=== PATIENT | male | born 1985 | race African-American/Black ===

== ENCOUNTER 2019-08-05 13:29 | Emergency (ER) | payer OTHER, SELFPAY ==
[2019-08-05 13:36] VITALS: BP 155/84; PULSE 91; RESP 16; TEMP 36.5; O2SAT 100
--- NOTE | 2019-08-05 13:54 | ED.GENADULT ---
HPI - General Adult General Chief complaint: Unspecified Stated complaint: needs Tdapt Time Seen by Provider: 08/05/19 13:54 Source: patient and RN notes reviewed Mode of arrival: ambulatory Limitations: no limitations History of Present Illness HPI narrative: 34-year-old -Thai male presents with complaints of needing Tdap updated due to arrival of in August,. Last Tdap was in 2008 to his knowledge. Denies injuries or wounds. No erythema. No tenderness or swelling. Denies drainage. No streaking. No numbness or tingling, or loss of mobility. Denies fever, chills, headaches, weakness, fatigue, myalgia, or facial swelling. Remains active. The patient reports he have not been diagnosed with COVID-19. The patient reports he is not waiting for the results of a COVID-19 lab test. The patient reports he do not have fever or chills. The patient reports he do not have a new or worsening cough or shortness of breath. Denies chest pain. The patient reports he do not have any rhinorrhea, congestion, sore throat, nausea, vomiting, abdominal pain, and diarrhea. Tolerating po intake well. Denies recent traveling. Denies concerns for COVID-19 or exposures been home since [id number] order except for essential household needs and return home. At this time, patient is not suspected of having COVID-19. Some parts of this dictation were generated by voice recognition software and may contain typographical and/or grammatical inaccuracies. Related Data Home Medications Medication Instructions Recorded Confirmed carvedilol 3.125 mg PO DAILY 08/05/19 08/05/19 glimepiride 2 mg PO DAILY 08/05/19 08/05/19 metformin 1,000 mg PO DAILY 08/05/19 08/05/19 simvastatin 20 mg PO DAILY 08/05/19 08/05/19 Allergies Allergy/AdvReac Type Severity Reaction Status Date / Time No Known Allergies Allergy Verified 08/05/19 13:35 Review of Systems Review of Systems: Narrative: CONSTITUTIONAL: Denies fever, chills, sweats. Complains of needing Tdap updated. EYES: Denies visual changes, redness, discharge. ENT: Denies rhinorrhea, congestion, sore throat, otalgia. CARDIOVASCULAR: Denies chest pain, palpitations, edema. RESPIRATORY: Denies dyspnea, wheezing, cough. GASTROINTESTINAL: Denies abdominal pain, nausea, vomiting, diarrhea. GENITOURINARY: Denies dysuria, hematuria, abnormal discharge. SKIN: Denies rash, itching, skin lesions, tenderness, swelling, erythema, and drainage. MUSCULOSKELETAL: Denies acute back pain, joint pain, or myalgia. NEUROLOGIC: Denies numbness or focal weakness. PSYCHIATRIC: Denies anxiety or depression. All other systems reviewed & are unremarkable except as noted in HPI and below. [facility] Past Medical History Medical History (Updated 08/05/19 @ 14:28 by TI Montanez) Diabetes Hypercholesteremia Hypertension Surgical History Surgical History (Updated 08/05/19 @ 14:18 by TI Montanez) No significant past surgical history Family History Family History (Updated 08/05/19 @ 14:19 by TI Montanez) Father , Lung cancer-developed pnuemonia Lung cancer Mother Hypertension Diabetes mellitus Heart disease Social History Social History (Updated 08/05/19 @ 14:20 by TI Montanez) Smoking packs per day: 0.25 Smoking cigarettes per day: 5.0 Years smoked: 22 Smoking pack-years: 5.50 Smoking status: Current every day smoker Alcohol intake: never Substance use: never Living arrangements: with family Gender identity (if verbalized by the patient): Male Comments At time of signature, agree with nurse past medical, surgical, social, and family history. There is no relevant family history pertinent to the presenting complaint. Exam Narrative: Exam Narrative: GENERAL: This is a well-nourished, well-developed patient, in no apparent distress. Talks in full sentences and ambulates with steady gait without dyspnea. HEAD: normocephalic,
[2019-08-05] MEDS: TETANUS,DIPHTHERIA,AC PERTUSSIS ADULT (0.5 ML) BOOSTRIX IM (14:18)
== END 2019-08-05 14:35 | disposition home or self-care (01) ==
PROVIDERS: Emergency Provider Nurse Practitioner Family
DX: Z23 Encounter for immunization (principal); E11.9 Type 2 diabetes mellitus without complications; I10 Essential (primary) hypertension; E78.00 Pure hypercholesterolemia, unspecified; F17.210 Nicotine dependence, cigarettes, uncomplicated; Z79.84 Long term (current) use of oral hypoglycemic drugs
CPT/HCPCS: 90471; 90715; 99212; G0463

== ENCOUNTER 2019-10-12 15:16 | Emergency (ER) | payer OTHER, SELFPAY ==
--- NOTE | ~2019-10-12 | XR_ITS ---
EXAMINATION: XR forearm LT 2V DATE: 10/12/2019 15:43 INDICATION: Medial left forearm pain after punching a metal post. TECHNIQUE: AP an lateral views of the left forearm were obtained. COMPARISON: none FINDINGS: Alignment is normal. No fracture. Joint spaces are normal. No left elbow joint effusion. Soft tissue swelling with subcutaneous edema along the radial side of the distal forearm. IMPRESSION: 1. No osseous abnormality. Reviewed, dictated and finalized at location B. IMPRESSION: 1. No osseous abnormality.
[2019-10-12 15:24] VITALS: BP 138/77; PULSE 98; RESP 16; TEMP 36.8; O2SAT 100
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
== END 2019-10-12 16:05 | disposition home or self-care (01) ==
PROVIDERS: Emergency Provider Registered Nurse; PCP Internal Medicine
DX: S50.12XA Contusion of left forearm, initial encounter (principal); W22.09XA Striking against other stationary object, initial encounter; E78.00 Pure hypercholesterolemia, unspecified; I10 Essential (primary) hypertension; E11.9 Type 2 diabetes mellitus without complications
CPT/HCPCS: 73090; 99213; G0463

== ENCOUNTER 2020-02-24 11:08 | Emergency (ER) | payer OTHER, SELFPAY ==
--- NOTE | ~2020-02-24 | XR_ITS ---
EXAMINATION: XR shoulder LT min 2V EXAM DATE: 02/24/2020 11:50 INDICATION: Left shoulder pain posteriorly. TECHNIQUE: The following left shoulder projections obtained: frontal projection with internal rotatio n, frontal projection with external rotation, Grashey, and scapular Y view (4+ views). There is no p rior study for comparison. FINDINGS: No evidence of left shoulder rotator cuff calcific tendinosis. Unremarkable left glenohu meral and acromioclavicular joints. There are no acute fractures or dislocations identified. There i s no subcutaneous gas. The soft tissue is unremarkable. There are no radiopaque foreign bodies. IMPRESSION: Normal left shoulder. Reviewed, dictated and finalized at location B. LONG TERM CARE IMPRESSION: Normal left shoulder.
[2020-02-24 11:16] VITALS: BP 148/82; PULSE 86; RESP 20; TEMP 36.2; O2SAT 100
--- NOTE | 2020-02-24 11:24 | ED.GENADULT ---
HPI - General Adult General Chief complaint: Extremity Injury, Upper Stated complaint: left shoulder pain Time Seen by Provider: 02/24/20 11:24 Source: patient Mode of arrival: ambulatory Limitations: no limitations History of Present Illness HPI narrative: 34-year-old male patient presents to the [facility] with complaints of left shoulder pain. Patient states he injured it a couple of months ago and states that he thinks he might of reinjured it about 2 weeks ago. Patient states he does have pain trying to lift his arm up. 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 Patient does also have a history of type 2 diabetes states he has not been able to take steroids because it raises his blood sugar. Patient was seen for this when he first injured it a couple months ago and had an x-ray done and was told it was just inflammation and was offered muscle relaxants but states he did not take them. Patient states he has been using a heating pad every once in a while to the area. Patient states now he is get a little bit of numbness and tingling from the elbow down to the hands and fingers. Related Data Home Medications Medication Instructions Recorded Confirmed carvedilol 3.125 mg PO BID 08/05/19 02/24/20 glimepiride 2 mg PO DAILY 08/05/19 02/24/20 metformin 1,000 mg PO BID 08/05/19 02/24/20 simvastatin 20 mg PO DAILY 08/05/19 02/24/20 Allergies Allergy/AdvReac Type Severity Reaction Status Date / Time No Known Allergies Allergy Verified 02/24/20 11:37 Review of Systems Review of Systems: Narrative: CONSTITUTIONAL: Denies fever, chills, or sweats. EYES: Denies visual changes, redness, or discharge. ENT: Denies rhinorrhea, congestion, sore throat, or otalgia. CARDIOVASCULAR: Denies chest pain, palpitations, or edema. RESPIRATORY: Denies cough or dyspnea. GASTROINTESTINAL: Denies abdominal pain, nausea, vomiting, or diarrhea. GENITOURINARY: Denies dysuria or hematuria. SKIN: Denies rash or itching. MUSCULOSKELETAL: Denies back pain, joint pain, or myalgia. Positive left shoulder pain NEUROLOGIC: Denies headache, numbness, or weakness. PSYCHIATRIC: Denies anxiety or depression. [facility] Past Medical History Medical History (Updated 02/24/20 @ 12:00 by TI Augustin) Diabetes Hypercholesteremia Hypertension Surgical History Surgical History No significant past surgical history Family History Family History Father , Lung cancer-developed pnuemonia Lung cancer Mother Hypertension Diabetes mellitus Heart disease Social History Social History Smoking packs per day: 0.25 Smoking cigarettes per day: 5.0 Years smoked: 22 Smoking pack-years: 5.50 Smoking status: Current every day smoker Alcohol intake: never Substance use: never Gender identity (if verbalized by the patient): Male Comments At the time of my signature I agree with nursing past medical history, surgical, social, and family history. There is no relevant family history pertinent to the presenting complaint. Exam Narrative: Exam Narrative: GENERAL: Well-appearing, well-nourished, and in no acute distress. HEAD: Normocephalic, atraumatic. EYES: PERRLA and EOMI. ENT: Nares clear, no rhinorrhea or epistaxis. Mucous membranes moist. NECK: Supple. No lymphadenopathy CHEST: Clear to auscultation. No respiratory distress. HEART: Regular rate and rhythm. No murmur heard. Normal peripheral pulses. ABDOMEN: Soft, nontender, nondistended, normal active bowel sounds. EXTREMITIES: The L shoulder is without obvious asymmetry or deformity when compared to the R shoulder. No surface trauma, ecchymosis, crepitus. No bony deformity or prominence of the humeral head No erythema, warmth, swelling. no ten
== END 2020-02-24 12:03 | disposition home or self-care (01) ==
PROVIDERS: Emergency Provider Nurse Practitioner Family
DX: M24.9 Joint derangement, unspecified (principal); E11.9 Type 2 diabetes mellitus without complications; E78.00 Pure hypercholesterolemia, unspecified; I10 Essential (primary) hypertension
CPT/HCPCS: 73030; 99213; G0463